=== PATIENT | male | born 1990 | race African-American/Black ===

== ENCOUNTER 2020-03-27 03:04 | Emergency (ER) | payer SELFPAY ==
[2020-03-27 03:50] LABS: BASOPHIL % 2.8 % (0-2); PLATELET COUNT 290 x10^3mcL (130-400); RED CELL DISTRIBUTION WIDTH 13.3 % (11.5-14.5)
[2020-03-27 03:59] LABS: CALCIUM 9.5 mg/dL (8.5-10.1); CARBON DIOXIDE 26.8 mmol/L (21-32); CREATININE SERUM 1.6 mg/dL (0.7-1.3); POTASSIUM SERUM 3.4 mmol/L (3.5-5.1)
[2020-03-27 04:08] LABS: ALBUMIN 4.1 g/dL (3.4-5.0); BILIRUBIN TOTAL 0.44 mg/dL (0.20-1.00); CHOLESTEROL/HDL RATIO 3.2; TOTAL PROTEIN, SERUM 7.7 g/dL (6.4-8.2)
[2020-03-27 05:36] VITALS: BP 109/61
[2020-03-27 05:40] LABS: UA SPECIFIC GRAVITY 1.015 (1.005-1.035); microscopic required? YES; urine erythrocyte 3+ (NEGATIVE)
[2020-03-27 05:58] LABS: AMPHETAMINE QUAL UR POSITIVE (See below)
== END 2020-03-27 05:36 | disposition home or self-care (01) ==
LOC: ED 03:04
PROVIDERS: Specialist
DX: R10.32 Left lower quadrant pain (principal); N13.2 Hydronephrosis with renal and ureteral calculous obstruction
CPT/HCPCS: J1885; J2405; J3010; J7030